=== PATIENT | male | born 1950 | race Caucasian/White ===

== ENCOUNTER → 2022-07-15 15:54 | Outpatient (BNVA) | payer OTHER, MEDICARE, SELFPAY | PROVIDERS: PCP Internal Medicine; Visit Provider Surgery | DX: K40.90 Unilateral inguinal hernia, without obstruction or gangrene, not specified as recurrent (principal) | CPT/HCPCS: 99202 ==

== ENCOUNTER 2022-08-13 08:45 | Day surgery (SDC) | payer OTHER, SELFPAY ==
[2022-08-09 14:29] VITALS: BMI 22.3
--- NOTE | 2022-08-12 09:32 | P.CONAN_ITS ---
Documented by User: Aurea Mcnally NP 08/12/22 09:33 HPI - Anesthesia Eval Consult details Narrative: 71yo M for Right Hernia Repair Inguinal,with mesh PMFSH Active Problems Active Problems: All Active Problems (Updated 08/09/22 @ 14:32 by Staci Greco RN) Right inguinal hernia (Acute) Hypertension (Acute) Past Medical History Medical History Arthritis Hypertension Right inguinal hernia Family History Family History Father No problems noted. Mother No problems noted. Surgical History Surgical History H/O colonoscopy Hx of left inguinal hernia repair Social History Social History Are you a primary nonfarm animal caretaker to a significant other at home: No Do you presently have visiting nurse or other home services: No Alcohol intake: current Alcohol intake frequency: a few times a week Patient Tobacco Use Status: Former Tobacco user Quit Date: age 51 Tobacco use type: Cigarette Use of substances other than those prescribed or required for medical reasons: No Have you been hit, kicked, punched, or otherwise hurt by someone within the past year? If so, by whom?: No Are you DNR?: No Advance Directives: No Advance Directives Information Provided: Yes (brochure mailed) Advance Directives on File: No Recently lost weight without trying: No Eating poorly because of decreased appetite: No Nutrition Risks: No Nutritional Risk Poor oral hygiene: No Meds Allergies Allergy/AdvReac Type Severity Reaction Status Date / Time morphine [MORPHINE] Allergy Intermediate Vomiting Verified 08/09/22 14:12 ENVIRONMENTAL Allergy Intermediate POST NASAL Uncoded 07/15/22 16:02 DRIP, ETC. Home Medications Medication Instructions Recorded Confirmed Last Taken Type amlodipine 10 mg tablet 10 mg PO DAILY 07/15/22 08/09/22 08/13/22 History aspirin 81 mg tablet,delayed 81 mg PO DAILY 07/15/22 08/09/22 Unknown History release carvedilol phosphate 20 mg 20 mg PO DAILY 07/15/22 08/09/22 08/13/22 History capsule,[email or web address] multiphase lisinopril 40 mg tablet 40 mg PO DAILY 07/15/22 08/09/22 Unknown History Exam Exam Date and Time: August 12, 2022 0932 Height,Weight and Vital Signs: Height 5 ft 11 in Weight 72.631 kg Assessment and Plan Assessment Anesthesia Assessment: Chart Reviewed Documented by User: Herminia Jackson MD 08/13/22 09:49 [facility] Active Problems Active Problems: All Active Problems (Updated 08/09/22 @ 14:32 by Staci Greco RN) Right inguinal hernia (Acute) Hypertension (Acute) H/o 'small AAA' by [facility] at [facility] about 5 years ago Past Medical History Medical History Arthritis Hypertension Right inguinal hernia Family History Family History Father No problems noted. Mother No problems noted. Family history of problems with anesthesia: No Surgical History Surgical History H/O colonoscopy Hx of left inguinal hernia repair History of Problems with Anesthesia: No Social History Social History Are you a primary nonfarm animal caretaker to a significant other at home: No Do you presently have visiting nurse or other home services: No Alcohol intake: current Alcohol intake frequency: a few times a week Patient Tobacco Use Status: Former Tobacco user Quit Date: age 51 Tobacco use type: Cigarette Use of substances other than those prescribed or required for medical reasons: No Have you been hit, kicked, punched, or otherwise hurt by someone within the past year? If so, by whom?: No Are you DNR?: No Advance Directives: No Advance Directives Information Provided: Yes (brochure mailed) Advance Directives on File: No Recently lost weight without trying: No Eating poorly because of decreased appetite: No Nutrition Risks: No Nutritional Risk Poor oral hygiene: No Meds Allergies Allergy/AdvReac Type Severity Reaction Status Date / Time morphine [MORPHINE] Allergy Intermediate Vomiting Verified 08/09/22 14:12 ENVIRONMENTAL Allergy Intermediate POST NASAL Uncoded 07/15/22 16:02 DRIP, ETC. Home Medications Medication Instructions Recorded Confirmed Last Taken Type amlodipine 10 mg tablet 10 mg PO DAILY 07/15/22 08/09/22 08/13/22 History aspirin 81 mg tablet,delayed 81 mg PO DAILY 07/15/22 08/09/22 Unknown History release carvedilol phosphate 20 mg 20 mg PO DAILY 07/15/22 08/09/22 08/13/22 History capsule,[email or web address] multiphase lisinopril 40 mg tablet 40 mg PO DAILY 07/15/22 08/09/22 Unknown History Exam Height,Weight and Vital Signs: Height 5 ft 11 in Weight 72.631 kg Vital Signs Temp Pulse Resp BP Pulse Ox O2 Del Method 08/13/22 09:22 98.4 F 75 16 164/73 H 99 Room Air Airway Mallampati Class: II TM Dist: >3cm Neck ROM: Full Loose/Missing/Broken Teeth: No (Denies broken or loose teeth) Heart: RRR ?murmur Lungs: CTAB Assessment and Plan Assessment Anesthesia Assessment: Anesthesia Plan Discussed Final Anesthetic Review Family History of Problems with Anesthesia: No History of Problems with Anesthesia: No NPO: Yes ASA Class: II Final Preanesthetic Review: No Changes in Pt Med Stat, Meds/Allgs Chart Reviewed, Consent Obtained/Reviewed and Anes Risks/Benef Reviewed Patient Risk: Low Procedure Risk: Low Assessment/Block/Sedation in SS: Assess/Block/Sedation-SS Anesthetic Plan Anesthetic Plan: GA Disposition: Standard PACU
[2022-08-13] VITALS (8 sets, daily range): BP systolic 143–165; BP diastolic 71–78; PULSE 62–75; RESP 16–18; TEMP 36.2–36.9; O2SAT 96–99
--- NOTE | 2022-08-13 08:57 | MHC.SHP ---
Pre-Procedural Eval Section A Date of Service: 08/13/22 The patient is an INPATIENT: No Changes since office visit: No Cold of Flu in the past 2 weeks, No New Medical Problems, No Changes in Medication and No Patient answered all questions The History & Physical has been completed within 30 days and I have reviewed it.: Yes Section B Chief Complaint: Unilateral inguinal hernia, without obstruction or Allergies: Allergies Allergy/AdvReac Type Severity Reaction Status Date / Time morphine [MORPHINE] Allergy Intermediate Vomiting Verified 08/09/22 14:12 ENVIRONMENTAL Allergy Intermediate POST NASAL Uncoded 07/15/22 16:02 DRIP, ETC. Plan I have reviewed the history and physical and performed a pertinent physical examination on my patient. No changes have occurred unless specified.
[2022-08-13] MEDS: Lactated Ringers 1,000 ML 100 ML IVCONT (09:32)
--- NOTE | 2022-08-13 10:41 | W.PM.OPN ---
Operative Note Operative Note Date of Service: 08/13/22 Narrative: Preop diagnosis: Right inguinal hernia Postop diagnosis: Right inguinal hernia, indirect Procedure: Repair of right inguinal hernia with mesh Surgeon: Chris Baez MD trust operations assistant: KINGSLEY Alanis The patient is a 71-year-old male with a reducible mass on the right inguinal area consistent with an inguinal hernia. He understood the technique of repair right inguinal hernia with mesh. He was aware of the risks, benefits, and alternatives. He was brought to the operating room. He was placed supine under general anesthesia via laryngeal mask airway. The right groin was prepped and draped in the usual sterile fashion. A surgical time-out was done. The patient received cefazolin 2 g IV preoperatively. I infiltrated the planned line of incision with lidocaine 1%. I made a short incision along an imaginary line from the anterior superior iliac spine to the pubic ramus using blade 15. This was carried down through the full-thickness of the skin subcutaneous fat down to the fascia. I bluntly dissected the external oblique aponeurosis to define the external ring. I incised the external oblique aponeurosis using blade 15. To enter the inguinal canal. I applied hemostats on the divided edges of the neurosis. I bluntly dissected the underside of the aponeurosis to create a pocket for the mesh. I then proceeded to do blunt dissection of the spermatic cord and its contents using my index finger until was able to pass a [place] drain around this. This Hector drain was used for retraction. I examined the spermatic cord. I identified the vas deferens and the accompanying vessels. These were protected during the rest of the dissection. I saw the hernia sac on the anterior aspect of the cord. This was from the rest of the cord contents. Part of this was excised and sent as specimen. I reduced the hernia sac completely through the internal ring. This was therefore an indirect hernia. I reinforced the internal ring with a Prolene plug. The cplug was secured with Prolene 2-0 sutures to shelving edge of the inguinal ligament laterally, the internal oblique superiorly and medially using the inner leaves of the plug. I reinforced the floor of the canal with a keyhole mesh. The tails of the mesh were passed around the cord at the level of the internal ring. This mesh was secured with Prolene 2 sutures to the shelving edge of the inguinal ligament laterally, the internal oblique superiorly and medially as well as the pubis inferomedially. I irrigated and observed for hemostasis. Once hemostasis was ensured, I proceeded to then close the external oblique aponeurosis with running Dexon 2-0 stitch to re-create the external ring. The subcutaneous layer was reapposed with Dexon 3-0 interrupted sutures. Skin closure was achieved with Dexon 4-0 subcuticular running stitch. Steri-Strips dressings were applied. The incision was infiltrated with Marcaine 0.5% for postop analgesia. The procedure was completed. The patient tolerated the procedure well. There were no immediate complications. Initial and final counts of sponges and instruments were correct. Estimated blood loss was about 10 cc . The patient was extubated without difficulty and transferred to the recovery room with stable vital signs.
[2022-08-13] MEDS: Acetaminophen 325 MG TABLET 650 MG PO (11:27)
[2022-08-13] MEDS: oxyCODONE HCl Immed Release 5 MG TABLET PO (11:29)
== END 2022-08-13 12:18 | disposition home or self-care (01) ==
PROVIDERS: PCP Internal Medicine; Visit Provider Surgery
PROC: (CPT 49505; principal; 2022-08-13 11:00)
DX: K40.90 Unilateral inguinal hernia, without obstruction or gangrene, not specified as recurrent (principal); I10 Essential (primary) hypertension; Z79.82 Long term (current) use of aspirin; Z79.899 Other long term (current) drug therapy; Z88.8 Allergy status to other drugs, medicaments and biological substances; F17.210 Nicotine dependence, cigarettes, uncomplicated
CPT/HCPCS: 49505; 88302; C1781; J0690; J1885; J2250; J2405; J2795; J3010

== ENCOUNTER → 2022-08-26 14:07 | Outpatient (BNVA) | payer MEDICARE, OTHER, SELFPAY | PROVIDERS: PCP Internal Medicine; Visit Provider Surgery | DX: Z48.815 Encounter for surgical aftercare following surgery on the digestive system (principal); Z87.19 Personal history of other diseases of the digestive system | CPT/HCPCS: 99212 ==

== ENCOUNTER → 2022-09-20 15:19 | Outpatient (BNVA) | payer MEDICARE, OTHER, SELFPAY | PROVIDERS: PCP Internal Medicine; Visit Provider Surgery | DX: Z48.815 Encounter for surgical aftercare following surgery on the digestive system (principal); Z87.19 Personal history of other diseases of the digestive system | CPT/HCPCS: 99212 ==